=== PATIENT | male | born 1960 | race Caucasian/White ===

== ENCOUNTER 2023-01-16 22:37 | Emergency (ER) | payer BC ==
[2023-01-16 23:58] LABS: APPEARANCE,URINE CLEAR (CLEAR); COLOR,URINE POC STRAW (YELLOW)
[2023-01-16 23:59] LABS: BILIRUBIN,URINE POC NEGATIVE (NEGATIVE); GLUCOSE,URINE POC NEGATIVE (NEGATIVE); KETONES,URINE POC NEGATIVE (NEGATIVE); LEUKOCYTE ESTERASE,URINE POC NEGATIVE (NEGATIVE); NITRITE,URINE POC NEGATIVE (NEGATIVE); OCCULT BLOOD,URINE POC TRACE (NEGATIVE); PH,URINE 5.5 (5.0-8.0); PROTEIN,URINE POC NEGATIVE (NEGATIVE); UROBILINOGEN,URINE POC 0.2 (0.2)
[2023-01-17 05:56] VITALS: BP 115/80; PULSE 87
== END 2023-01-17 00:50 | disposition home or self-care (01) ==
LOC: VM.ED 22:37
DX: R33.9 Retention of urine, unspecified (principal); I10 Essential (primary) hypertension; E66.9 Obesity, unspecified; Z68.31 Body mass index [BMI] 31.0-31.9, adult; Z79.899 Other long term (current) drug therapy
CPT/HCPCS: 51702; 81002; 99284

== ENCOUNTER 2023-06-06 06:59 | Day surgery (SDC) | payer BC ==
[2023-06-06] MEDS: Lactated Ringers 1,000 ML IV SCH (07:28)
[2023-06-06] MEDS ORDERED: fentaNYL 100 MCG/2 ML SDV ONE (08:16)
[2023-06-06] MEDS ORDERED: Propofol 200 MG/20 ML SDV ONE (08:16)
[2023-06-06 09:10] VITALS: BP 118/78; PULSE 56
== END 2023-06-06 10:05 | disposition home or self-care (01) ==
LOC: VM.SDS 06:59
PROVIDERS: ATTEND Family Medicine
DX: Z12.11 Encounter for screening for malignant neoplasm of colon (principal); D12.2 Benign neoplasm of ascending colon; K57.30 Diverticulosis of large intestine without perforation or abscess without bleeding; N40.1 Benign prostatic hyperplasia with lower urinary tract symptoms; N13.8 Other obstructive and reflux uropathy; M19.90 Unspecified osteoarthritis, unspecified site; E66.9 Obesity, unspecified; M54.9 Dorsalgia, unspecified; G89.29 Other chronic pain; Z79.899 Other long term (current) drug therapy; Z87.891 Personal history of nicotine dependence
CPT/HCPCS: 00812; J2704; J3010; J7120